=== PATIENT | female | born 1950 | race Caucasian/White ===

== ENCOUNTER → 2016-09-16 17:34 | Outpatient (CLI) | payer MEDICARE, OTHER | END | disposition home or self-care (01) | LOC: D.MAMMO 15:15 | DX: Z12.31 Encounter for screening mammogram for malignant neoplasm of breast (principal) ==

== ENCOUNTER → 2016-11-30 16:38 | Outpatient (CLI) | payer MEDICARE, OTHER | END | disposition home or self-care (01) | LOC: D.MAMMO 11-02 08:30 | DX: R92.8 Other abnormal and inconclusive findings on diagnostic imaging of breast (principal) ==

== ENCOUNTER → 2018-06-08 16:23 | Outpatient (CLI) | payer MEDICARE, OTHER | END | disposition home or self-care (01) | LOC: D.MAMMO 11:00 | DX: Z12.31 Encounter for screening mammogram for malignant neoplasm of breast (principal) ==

== ENCOUNTER → 2018-06-29 16:44 | Outpatient (CLI) | payer MEDICARE, OTHER ==
[2018-06-29 18:04] LABS: ERYTHROCYTE SEDIMENTATION RATE 17 mm/hr (0-30)
[2018-07-11 13:17] LABS: ACR - BINDING <0.03 nmol/L (0.00-0.24); ACR - BLOCKING 13 % (0-25); ACR - MODULATING <12 % (0-20)
== END | disposition home or self-care (01) ==
LOC: D.LABREF 16:44
PROVIDERS: Ophthalmology
DX: R51 Headache (principal); H53.9 Unspecified visual disturbance

== ENCOUNTER 2018-07-14 19:00 | Outpatient (CLI) | payer MEDICARE, OTHER | END 2018-07-14 23:59 | disposition home or self-care (01) | LOC: D.MAMMO 19:00 | DX: R92.8 Other abnormal and inconclusive findings on diagnostic imaging of breast (principal) ==

== ENCOUNTER 2019-05-21 08:00 | Outpatient (CLI) | payer MEDICARE, OTHER | END 2019-05-21 23:59 | disposition home or self-care (01) | LOC: D.MAMMO 08:00 | PROVIDERS: ATTEND Internal Medicine | DX: N63.10 Unspecified lump in the right breast, unspecified quadrant (principal) ==